=== PATIENT | female | born 1985 | race American Indian/Alaskan Native ===

== ENCOUNTER 2022-05-18 21:08 | Emergency (ER) | payer MEDICAID ==
[2022-05-18] MEDS ORDERED: Morphine 4 MG/ML VIAL IVPUSH ONE (21:33)
[2022-05-18] MEDS ORDERED: Ondansetron 4 MG/2 ML SDV IVPUSH ONE (21:33)
[2022-05-18] MEDS ORDERED: Sodium Chloride 0.9% 1,000 ML IV ONE (21:33)
[2022-05-18 22:27] LABS: BLOOD UREA NITROGEN,BUN 12 mg/dL (7.0-18.0); CARBON DIOXIDE,CO2 23.2 mmol/L (21.0-32.0); CHLORIDE,CL 102 mmol/L (98-107); ESTIMATED GFR 46 mL/min (>60); GLUCOSE RANDOM 101 mg/dL (74-106); LIPASE 176 U/L (73-393); POTASSIUM,K 4.1 mmol/L (3.5-5.1); SODIUM,NA 134 mmol/L (136-145)
[2022-05-18] MEDS ORDERED: Iopamidol 755 MG/ML 500 ML Multipack Bottle IVPUSH STA ×2 (22:48→22:50)
[2022-05-19] MEDS ORDERED: Piperacillin/Tazobactam 4.5 GM in Sodium Chloride 0.9% 100 ML IV ONE (00:21)
[2022-05-19] MEDS ORDERED: Sodium Chloride 0.9% 1,000 ML IV ONE (00:36)
[2022-05-19] MEDS ORDERED: diphenhydrAMINE 50 MG/ML SDV IVPUSH ONE (00:37)
[2022-05-19] MEDS ORDERED: LORazepam 2 MG/ML Syringe IVPUSH ONE (02:05)
[2022-05-19] MEDS ORDERED: LORazepam 2 MG/ML SDV IVPUSH ONE (02:14)
== END 2022-05-19 02:18 ==
LOC: MW.ED 21:08 → EEVIPCON 21:08 → MW.ED 05-19 02:18
DX: K81.9 Cholecystitis, unspecified (principal); Z20.822 Contact with and (suspected) exposure to COVID-19
CPT/HCPCS: 36415; 71045; 74177; 80053; 80307; 81001; 82140; 83605; 83690; 83735; 84484; 84703; 85025; 85610; 85730; 86706; 86803; 87040; 87077; 87154; 87186; 87340; 87635; 96361; 96365; 96375; 99285; J1200; J2060; J2270; J2405; J2543; J7030; Q9967; U0002

== ENCOUNTER 2022-05-30 13:52 | Emergency (ER) | payer MEDICAID ==
[2022-05-30] MEDS ORDERED: Sodium Chloride 0.9% 10 ML Syringe FLUSH PRN (14:32)
[2022-05-30] MEDS ORDERED: Sodium Chloride 0.9% 2.5 ML Syringe FLUSH PRN (14:32)
[2022-05-30 15:23] LABS: CARBON DIOXIDE,CO2 20.4 mmol/L (21.0-32.0); POTASSIUM,K 3.5 mmol/L (3.5-5.1)
[2022-05-30] MEDS ORDERED: cefTRIAXone 1 GM in Sodium Chloride 0.9% 50 ML IV ONE (21:07)
[2022-05-30] MEDS ORDERED: Morphine 2 MG/ML SYRINGE IVPUSH ONE (22:17)
== END 2022-05-30 22:35 ==
LOC: MW.ED 13:52
DX: K70.10 Alcoholic hepatitis without ascites (principal); K76.9 Liver disease, unspecified; N17.9 Acute kidney failure, unspecified; D64.9 Anemia, unspecified; D72.829 Elevated white blood cell count, unspecified; Z20.822 Contact with and (suspected) exposure to COVID-19
CPT/HCPCS: 36415; 80053; 81001; 82140; 83690; 84703; 85025; 85610; 87040; 87086; 87635; 96365; 96375; 99284; J0696; J2270; J3490; 99285; U0002

== ENCOUNTER 2022-06-28 09:49 | Emergency (ER) | payer MEDICAID ==
[2022-06-28 10:38] LABS: CARBON DIOXIDE,CO2 21.5 mmol/L (21.0-32.0); POTASSIUM,K 3.2 mmol/L (3.5-5.1)
== END 2022-06-28 14:41 | disposition home or self-care (01) ==
LOC: MW.ED 09:49
DX: D64.9 Anemia, unspecified (principal); Z20.822 Contact with and (suspected) exposure to COVID-19
CPT/HCPCS: 36415; 36430; 80053; 85025; 85610; 85730; 86850; 86900; 86901; 86920; 87635; 99284; P9016; U0002